=== PATIENT | male | born 1975 | race Caucasian/White ===

== ENCOUNTER 2020-11-21 12:21 | Emergency (ER) | payer SELFPAY ==
[2020-11-21 14:43] LABS: RED BLOOD COUNT 6.15 M/UL (4.20-5.50); WHITE BLOOD COUNT 12.3 K/UL (4.5-11.0)
[2020-11-21 15:10] LABS: BUN/CREATININE RATIO 11 (0-10)
== END 2020-11-21 16:34 | disposition home or self-care (01) ==
LOC: ER1 12:21
PROVIDERS: Emergency Medicine
DX: R04.0 Epistaxis (principal); I10 Essential (primary) hypertension; R51.9 Headache, unspecified; E87.1 Hypo-osmolality and hyponatremia; R79.89 Other specified abnormal findings of blood chemistry
CPT/HCPCS: 70450; 80053; 82550; 82553; 82962; 83874; 84484; 85025; 85610; 85730; 93005; 99284